=== PATIENT | male | born 1945 | race Caucasian/White ===

== ENCOUNTER → 2016-10-31 | Outpatient (CLI) | payer MEDICARE, MEDICAID ==
[~2016-10-31] MED LIST: ACETAMINOP160 MG/51 GT; ACETAMINOPHEN650 MG R; AMLODIPINE GT; BAG BALM TOP; BETADINE SOLUT118 ML TOP; BISACODYL10 MG R; COMPAZINE 10MG10 MG GT; DEBROX,CARBAMID15 ML OTIC; FIBERSOURCE H1000 ML GT; HYDROCERIN)(MI236 ML; HYDROCORTISONE20 GM TOP; HYOSCYAMIN0.125 MG/1 SL; ILOTYCIN1 GM OPHTH; LEVAQUIN500 MG GT; MILK OF MA400 MG/5 M GT; MINERIN CREME454 GM TOP; MIRALAX17 GM GT; MOTRIN/ADV100 MG/5 M GT; MUPIROCIN1 GM TOP; NEOSPORIN OIN14.2 GM TOP; NEXIUM40 MG GT; NORCO 5-325 MG1 TAB GT; OMEPRAZOLE GT; PROCTOZONE-HC30 GM TOP; ROBITUSSIN DM120 ML GT; SILACE50 MG/5 ML GT; SILVADENE20 GM TOP; TYLENOL WITH C1 EACH FT; VITAMIN D50000 UNIT GT; ZOFRAN4 MG GT; ZYRTEC SYRU1 MG/1 ML GT; [UNRECOGNIZED DRUG - OTHER] GT; [UNRECOGNIZED DRUG - OTHER] GT
[2016-10-31 08:41] LABS: BASOPHIL # 0.1 K/uL (0.0-0.2); BASOPHIL % 0.7 %; EOSINOPHIL % 0.2 %; HEMATOCRIT 38.5 % (37.0-53.0); HEMOGLOBIN 12.8 g/dL (11.0-16.0); IMMATURE GRANULOCYTE % 0.3 %; LYMPHOCYTE # 1.5 K/uL (0.8-4.0); LYMPHOCYTE % 15.8 %; MCH 31.1 pg (27.0-34.0); MCHC 33.2 gm/dL (32.0-36.5); MCV 93.4 fl (83.0-98.0); MONOCYTE # 0.6 K/uL (0.0-1.0); MONOCYTE % 6.4 %; MPV 9.5 fl (9.4-12.4); NEUTROPHIL # (ANC) 7.2 K/uL (1.4-9.0); NEUTROPHIL % 76.6 %; NRBC % 0 /100WBC (0-0.00); PLATELET COUNT 259 K/uL (150-450); RBC 4.12 M/uL (3.50-5.50); RDW-CV 14.2 % (11.9-14.6); WBC 9.5 K/uL (4.0-11.0)
[2016-10-31 09:04] LABS: ALK PHOS 62 IU/L (33-138); ALT 19 IU/L (12-78); ANION GAP 12.2 (10.0-19.0); AST 25 IU/L (10-40); BLOOD UREA NITROGEN 16 mg/dL (6-24); CALCIUM 8.2 mg/dL (8.5-10.5); CHLORIDE 99 mMol/L (96-110); CO2 30 mMol/L (22-32); CREATININE 0.6 mg/dL (0.6-1.3); ESTIMATED GFR (MDRD EQUATION) > 60; POTASSIUM 4.2 mMol/L (3.7-5.1); SODIUM 137 mMol/L (135-145); TOTAL BILIRUBIN 0.5 mg/dL (0.0-1.5); TOTAL PROTEIN 7.2 g/dL (6.0-8.4)
== END | disposition disaster alternative care site (69) ==
LOC: LBETH 10-30 06:37
PROVIDERS: Psychiatry & Neurology Neurology
DX: F03.90 Unspecified dementia, unspecified severity, without behavioral disturbance, psychotic disturbance, mood disturbance, and anxiety (principal); R63.0 Anorexia; M05.9 Rheumatoid arthritis with rheumatoid factor, unspecified; E78.5 Hyperlipidemia, unspecified; M81.0 Age-related osteoporosis without current pathological fracture; Z79.899 Other long term (current) drug therapy

== ENCOUNTER → 2016-12-15 | Day surgery (SDC) | payer MEDICARE, MEDICAID ==
[~2016-12-15] VITALS: Ht 149.9 cm; Wt 52.5 kg
--- NOTE | ~2016-12-15 | OR ---
PATIENT'S NAME: JEAN CLAUDE GALVEZ [facility] AGE: 71 Y [address] ROOM: [place] [address] LOCATION: [facility] [place] ADMIT DATE: 12/15/2016 OR/Procedure Report DISCHARGE DATE: FAMILY PHYSICIAN: Jonathan Helton ATTENDING PHYSICIAN: Conchis Juares SURGEON: Conchis Juares MD BODY TECHNICIAN: DATE OF PROCEDURE: 12/15/2016 PREOPERATIVE DIAGNOSIS: Urinary retention. POSTOPERATIVE DIAGNOSIS: Urinary retention. PROCEDURE PERFORMED: Suprapubic cystostomy. ANESTHESIA: MAC with local. COMPLICATIONS: None. INDICATION FOR PROCEDURE: The patient is a 71-year-old male with mental retardation and urinary retention. Staff requests suprapubic catheter placement for management of his retention. DETAILS OF PROCEDURE: After informed consent was obtained, the patient was taken to the operating room. A MAC anesthetic was applied. He was placed in the dorsal lithotomy position. The groin area and lower abdomen were prepped and draped in normal sterile fashion. Cystoscope was introduced into the urethra and bladder. The bladder was full of debris and small stones which was then irrigated out. Following this, the bladder was filled to capacity and the cystoscope removed. A curved Lowsley retractor was then introduced into the urethra and bladder. The tip of the Lowsley retractor was placed up against the abdominal wall. Local lidocaine was injected in this area. A skin incision was made directly over the tip of the Lowsley retractor. Electrocautery was used to carry the incision down to the anterior fascial layer. This was then opened. Next, a 24-Irish Masterson catheter was attached to the tip of the Lowsley retractor and pulled through the bladder, not the urethra. Using the cystoscope, the catheter was slowly backed into the bladder and the balloon inflated. The incision was closed with 2-0 Prolene sutures in a vertical mattress fashion. The catheter was secured with a 2-0 Prolene suture. The wound was then dressed in normal sterile fashion. The patient tolerated the procedure well and transferred recovery room in good condition. PATIENT'S NAME: JEAN CLAUDE GALVEZ [facility] AGE: 71 Y [address] ROOM: [place] [address] [place]: [facility] [place]MIT DATE: 12/15/2016 OR/Procedure Report DISCHARGE DATE: FAMILY PHYSICIAN: Jonathan Helton ATTENDING PHYSICIAN: Conchis Juares MD MAY HERNÁNDEZ/modl /[id number] CC: NEVA Heaton d: 12/16/16 1644 t: 12/30/16 1512, OPERATIVE SUMMARY
== END | disposition disaster alternative care site (69) ==
LOC: GPOC 12-12 11:00 → GSDC 07:44 → GPOC 08:00
PROC: 0T9B00Z Drainage of Bladder with Drainage Device, Open Approach (ICD-10-PCS; principal; 2016-12-15)
DX: R33.9 Retention of urine, unspecified (principal); N21.0 Calculus in bladder; E78.5 Hyperlipidemia, unspecified; J40 Bronchitis, not specified as acute or chronic; G40.909 Epilepsy, unspecified, not intractable, without status epilepticus; Z98.890 Other specified postprocedural states
CPT/HCPCS: J1956; J7120